=== PATIENT | female | born 1960 | race Hispanic/Latino ===

== ENCOUNTER → 2019-02-04 | Outpatient (CLI) | payer OTHER, MEDICARE ==
[~2019-02-04] MED LIST: ALBU8.5H8 IH; CYCL10TA7 PO; DIAZ10TA PO; EZET10 PO; FLUT1DIS3 IH; GABA800T9 PO; NAPR-1023 PO; SIMV40TA59 PO; SOLI5 PO
== END | disposition home or self-care (01) ==
LOC: RAH 09:21
PROVIDERS: ATTEND Family Medicine
DX: D34 Benign neoplasm of thyroid gland (principal); E21.3 Hyperparathyroidism, unspecified
CPT/HCPCS: 78070; A9500

== ENCOUNTER → 2019-12-22 | Outpatient (CLI) | payer OTHER, MEDICARE ==
[~2019-12-22] MED LIST changes: -EZET10 PO; +EZET10TA13 PO
== END | disposition home or self-care (01) ==
LOC: RAH 09:10
PROVIDERS: ATTEND Family Medicine
DX: Z12.31 Encounter for screening mammogram for malignant neoplasm of breast (principal)
CPT/HCPCS: 77067